=== PATIENT | female | born 1960 | race Caucasian/White ===

== ENCOUNTER 2019-05-29 11:21 | Inpatient (IN) ==
[2019-05-29] MEDS: NEURONTIN PO SCH ×2 (14:13→18:59)
[2019-05-29] MEDS: DILAUDID IV PRN ×2 (14:13→18:59)
[2019-05-29] MEDS: PROTONIX IV SCH (14:14)
[2019-05-29 14:15] LABS: URINE SOURCE CATH
[2019-05-29 14:28] LABS: BILIRUBIN URINE NEGATIVE (NEGATIVE); BLOOD URINE NEGATIVE (NEGATIVE); COLOR YELLOW; GLUCOSE URINE NEGATIVE (NEGATIVE); KETONE URINE NEGATIVE (NEGATIVE); LEUKOCYTES URINE NEGATIVE (NEGATIVE); NITRITE URINE NEGATIVE (NEGATIVE); PH URINE 6.5; PROTEIN URINE NEGATIVE (NEGATIVE); SP GRAVITY URINE 1.009; TURBIDITY URINE CLEAR (CLEAR); UROBILINOGEN URINE NORMAL (NORMAL)
[2019-05-29 14:30] LABS: UR EPITHELIAL CELLS <10 /HPF (<10); URINE BACTERIA NEGATIVE /HPF; URINE RBC <10 /HPF (<10); URINE WBC <10 /HPF (<10)
[2019-05-29 15:24] LABS: BASO# 0.02 X1000 (0.0-0.2); BASO% 0.2 % (0.0-0.8); EOS# 0.67 X1000 (0.0-0.7); EOS% 6.7 % (0.0-10.0); HEMATOCRIT 45.7 % (37.0-47.0); HEMOGLOBIN 15.4 g/dL (12.0-16.0); LYMPH# 2.76 X1000 (1.2-3.4); LYMPH% 27.4 % (20.5-51.1); MCH 28.1 PG (27-31); MCHC 33.7 g/dL (33-37); MCV 83.2 FL (81-99); MONO# 0.69 X1000 (0.11-0.59); MONO% 6.9 % (1.7-9.3); MPV 10.4 FL (7.4-10.4); NEUT# 5.93 X1000 (1.4-6.5); NEUT% 58.8 % (42.2-75.2); PLT 358 X1000 (130-400); RBC 5.49 XMIL (4.2-5.4); RDW 14.3 % (11.5-14.5); WBC 10.07 X1000 (4.8-10.8)
[2019-05-29] MEDS: DUONEB (A & A) INH SCH ×3 (15:28→20:00)
[2019-05-29 15:41] LABS: ESTIMATED GFR > 60
[2019-05-29] MEDS: NICODERM PATCH TD SCH (15:42)
[2019-05-29] MEDS: LOVENOX SUBQ SCH (15:42)
[2019-05-29 15:45] LABS: AGAP 13; ALB/GLOB RATIO 1.7; ALBUMIN 4.2 g/dL (3.5-5.0); ALKALINE PHOSPHATASE 116 U/L (32-104); BUN 9 mg/dL (8-22); CALCIUM 9.4 mg/dL (8.8-10.2); CHLORIDE 88 mmol/L (98-107); COSMO 250; CREATININE 0.9 mg/dL (0.5-0.9); GLUCOSE 103 mg/dL (70-104); GOT 20 U/L (10-30); GPT 21 U/L (10-36); POTASSIUM 4.2 mmol/L (3.5-5.1); SODIUM 125 mmol/L (136-145); TCO2 24 mmol/L (25-35); TOTAL BILIRUBIN 0.35 mg/dL (0.20-1.00); TOTAL PROTEIN 6.7 g/dL (6.3-8.3)
--- NOTE | 2019-05-29 15:48 | Diag Imaging Result Doc PS360 ---
CT ABDOMEN/PELVIS W/O CONTRAST - 05/29/2019 INDICATION: abd pain COMPARISON: 07/19/2018 FINDINGS: The lung bases are clear and the heart size is normal. Stable cholecystectomy clips. No radiodense renal stones. No hydronephrosis or hydroureter. There is a Schmitz catheter in the urinary bladder. Urinary bladder is otherwise unremarkable. Uterus and rectum are normal. No bowel obstruction or inflammation. Normal appendix. No constipation. No free air or free fluid. There are advanced degenerative changes of the spine, worse at L2-L3, stable from prior. No acute or suspicious bony lesion. IMPRESSION: No acute disease or change from prior. This exam was performed using automated exposure control, adjustment of mA or kV according to patient size, and/or use of iterative reconstruction technique Electronically signed by Jacques Gudino 05/29/2019 3:46 PM
[2019-05-29] MEDS: SODIUM CHLORIDE 0.9% INJ SCH (17:42)
[2019-05-29] MEDS: ZOCOR PO SCH (20:29)
[2019-05-29] MEDS: LOPRESSOR PO SCH (20:29)
[2019-05-29] MEDS: ZANAFLEX PO SCH (20:30)
[2019-05-29] MEDS: ATIVAN PO SCH (22:10)
[2019-05-30] MEDS: DILAUDID IV PRN ×6 (00:29→23:17)
[2019-05-30] MEDS: NEURONTIN PO SCH ×4 (04:01→22:20)
[2019-05-30] MEDS: ZOFRAN IV PRN ×4 (05:40→23:18)
[2019-05-30] MEDS: DUONEB (A & A) INH SCH ×3 (08:19→19:57)
[2019-05-30] MEDS: COZAAR PO SCH (09:02)
[2019-05-30] MEDS: LOPRESSOR PO SCH ×2 (09:02→22:19)
[2019-05-30] MEDS: ZANAFLEX PO SCH ×2 (09:03→22:19)
[2019-05-30] MEDS: CYMBALTA PO SCH (09:03)
[2019-05-30] MEDS: NICODERM PATCH TD SCH (09:03)
[2019-05-30] MEDS: LASIX PO SCH (09:03)
[2019-05-30] MEDS: ABILIFY PO SCH (09:03)
[2019-05-30] MEDS: KLOR-CON PO SCH (09:03)
[2019-05-30] MEDS ORDERED: LABETALOL IV PRN (11:50)
--- NOTE | 2019-05-30 12:13 | PROGRESS NOTE ---
DATE: 05/30/2019 SUBJECTIVE: Ms Lindsay was admitted with severe abdominal pain, some intermittent mental confusion. Her pain is very severe. She was treated as an outpatient without much response. She was treated with Flagyl as well as oral antibiotics. She is allergic to Cipro. We are going to do the CT scan, repeat the urinalysis and do the blood work. She has bad hypertension, has been on Lasix therapy as well as Lopressor for a long time. OBJECTIVE: Her sodium is 125, and BUN and creatinine are normal. CBC is unremarkable. PLAN: We are going to check her stool for occult blood. -2 cc: Dante Coppola MD
[2019-05-30] MEDS: POTASSIUM CHLORIDE 10 MEQ in NS 1,000 ML IV SCH (12:31)
--- NOTE | 2019-05-30 13:03 | HISTORY AND PHYSICAL ---
HISTORY OF PRESENT ILLNESS: Ms. Lindsay, who is a 58-year-old white female, comes to the office. This is the 2nd time that she has come within 5 days. She had the same complaint of severe left lower quadrant pain. Sometimes she gets confused. She does not have any pain medications except that she was taking some NSAIDs. She has a history of recurrent diverticulitis in the past. Ms. Lindsay, who is grossly obese, has a past surgical history of 2 back surgeries and 1 neck surgery. She had a hysterectomy and had to revise that surgery. She has a bad scar in the lower abdomen and she complains of hurting there. This time, she was treated with whole cephalosporins as well as Flagyl without much help. She has persistent nausea and has been vomiting off and on along with this. She was in severe agony and was admitted. Other details of personal, past, and family history are noncontributory. She is a heavy smoker, smokes about 2 packs of cigarettes per day. Does not drink. She has bipolar disease and has been having a lot of a lot of anxiety and depression over the past few years on account of multiple family problems and her own physical problems. REVIEW OF SYSTEMS: Other than abdominal pain, vomiting, nausea, she denies having any chest pain, shortness of breath. She has intermittent confusion. Other details are not contributory. PHYSICAL EXAMINATION: GENERAL: Patient is alert, however, certainly talking about pain. VITAL SIGNS: Temperature normal, pulse 80 per minute, respiratory rate 20 per minute, blood pressure 141/105. HEENT: Head normocephalic. Pupils PERRLA. Fundus examination normal. NECK: Supple. JVP normal. ENT EXAMINATION: Unremarkable. There is no evidence of lymphadenopathy, thyroid enlargement, pedal edema, calf tenderness, anemia, cyanosis or clubbing. Pedal pulses well felt. BREAST EXAM: Not done. CHEST: Normal inspection. LUNGS: Clear on auscultation. PMI in the normal position. HEART: Heart sounds normal. No murmur, gallop or rub noted. ABDOMEN: Nondistended. Hernial orifices normal. No guarding, rigidity, free fluid, masses, or organomegaly. Bowel sounds normal. There is severe tenderness in the left lower quadrant of the abdomen. RECTAL: Deferred at the present time. The patient is somewhat incontinent.of urine.. CLINICAL PHARMACOLOGIST: Higher functions, severe anxiousness and depression. Cranial nerves normal. Motor and sensory system examination unremarkable. She has constant severe pain in the back. Deep tendon reflexes sluggish. Plantars downgoing. Skull and spine examination normal for age. No cerebellar signs or signs of meningeal irritation. Local motor exam unremarkable. SKIN: Unremarkable. CLINICAL IMPRESSION: 1. Severe abdominal pain, left lower quadrant. 2. The patient has intermittent confusion as well as history of multiple back surgeries and in constant back pain. PLAN: Plan to start IV Protonix. The patient also needs an urgent CT scan of the abdomen and pelvis, and depending on the results, we will start antibiotics. She has received enough oral antibiotics recently. cc: Dante Coppola MD MTDD
[2019-05-30] MEDS: LOVENOX SUBQ SCH (14:47)
[2019-05-30] MEDS: SODIUM CHLORIDE 0.9% INJ SCH (14:47)
[2019-05-30] MEDS: PROTONIX IV SCH (14:47)
[2019-05-30] MEDS: ATIVAN PO SCH (22:19)
[2019-05-30] MEDS: ZOCOR PO SCH (22:20)
[2019-05-31] MEDS: NEURONTIN PO SCH ×4 (00:51→20:10)
[2019-05-31] MEDS: ZOFRAN IV PRN ×4 (04:11→18:26)
[2019-05-31] MEDS: DILAUDID IV PRN ×4 (04:11→18:25)
[2019-05-31] MEDS: POTASSIUM CHLORIDE 10 MEQ in NS 1,000 ML IV SCH (05:58)
[2019-05-31 08:03] LABS: AGAP 12; BUN 11 mg/dL (8-22); CALCIUM 9.2 mg/dL (8.8-10.2); CHLORIDE 88 mmol/L (98-107); COSMO 252; CREATININE 0.9 mg/dL (0.5-0.9); ESTIMATED GFR > 60; GLUCOSE 155 mg/dL (70-104); POTASSIUM 5.7 mmol/L (3.5-5.1); SODIUM 124 mmol/L (136-145); TCO2 24 mmol/L (25-35)
[2019-05-31] MEDS: LASIX PO SCH (08:59)
[2019-05-31] MEDS: COZAAR PO SCH (08:59)
[2019-05-31] MEDS: ABILIFY PO SCH (08:59)
[2019-05-31] MEDS: CYMBALTA PO SCH (08:59)
[2019-05-31] MEDS: ZANAFLEX PO SCH ×2 (08:59→20:10)
[2019-05-31] MEDS: KLOR-CON PO SCH (08:59)
[2019-05-31] MEDS: LOPRESSOR PO SCH ×2 (09:00→20:10)
[2019-05-31] MEDS: NICODERM PATCH TD SCH (09:01)
[2019-05-31] MEDS: DUONEB (A & A) INH SCH ×3 (09:04→20:30)
--- NOTE | 2019-05-31 13:29 | PROGRESS NOTE ---
DATE: 05/31/2019 SUBJECTIVE: The patient says she still hurts in the left lower quadrant, then she falls off to sleep. She did this 2 or 3 times while I was in the room, and then asked for more pain medicine. Apparently came in with what was described as severe left lower quadrant abdominal pain. CT scan of the abdomen was clear, did not show diverticulitis, did not show masses, did not show colitis. She does tell me it has been over 10 years since her last colonoscopy. She also had hypokalemia. She was given IV and p.o. potassium, but her potassium today is 5.7, so we will stop the supplemental potassium for now and we will monitor. OBJECTIVE: Vital Signs: Blood pressure is 155/102, respirations 16, pulse 71, temperature 97.9 degrees Fahrenheit. Oxygen saturation is 99% on room air. HEENT: She is normocephalic. EOMS intact. PERRLA. Throat clear. Lungs: Clear to auscultation and percussion without rhonchi, rales, or wheezes. Heart: Regular rate and rhythm without murmurs, gallops, friction rubs. Abdomen: Soft. Active bowel sounds. No organomegaly or tenderness. The patient says she hurts in the left lower quadrant, but I cannot really elicit any on exam. Nurses tell me that she has been asking for pain medicine almost constantly. ASSESSMENT: 1. Left lower quadrant abdominal pain. 2. Obesity. 3. Hypokalemia. 4. Now hyperkalemia. PLAN: Stop potassium supplementation and monitor. We will get GI to come see her. She may need a colonoscopy. cc: MD Dante Valentine Jr, MD
[2019-05-31] MEDS: PROTONIX IV SCH (14:15)
[2019-05-31] MEDS: LOVENOX SUBQ SCH (14:16)
[2019-05-31] MEDS: SODIUM CHLORIDE 0.9% INJ SCH (14:16)
[2019-05-31] MEDS: ZOCOR PO SCH (20:10)
[2019-05-31] MEDS: ATIVAN PO SCH (20:10)
[2019-05-31] MEDS: NS 1,000 ML IV SCH (20:10)
[2019-06-01] MEDS: DILAUDID IV PRN ×5 (00:02→21:08)
[2019-06-01] MEDS: NEURONTIN PO SCH ×4 (01:13→21:08)
[2019-06-01 05:30] LABS: BASO# 0.02 X1000 (0.0-0.2); BASO% 0.3 % (0.0-0.8); EOS# 0.68 X1000 (0.0-0.7); EOS% 8.9 % (0.0-10.0); HEMATOCRIT 40.1 % (37.0-47.0); HEMOGLOBIN 12.7 g/dL (12.0-16.0); IMM GRAN# 0.02 X1000 (0.0-0.04); IMM GRAN% 0.3 % (0.0-0.5); LYMPH# 2.43 X1000 (1.2-3.4); LYMPH% 31.7 % (20.5-51.1); MCH 27.4 PG (27-31); MCHC 31.7 g/dL (33-37); MCV 86.6 FL (81-99); MONO# 0.45 X1000 (0.11-0.59); MONO% 5.9 % (1.7-9.3); MPV 10.2 FL (7.4-10.4); NEUT# 4.07 X1000 (1.4-6.5); NEUT% 52.9 % (42.2-75.2); PLT 292 X1000 (130-400); RBC 4.63 XMIL (4.2-5.4); RDW 13.9 % (11.5-14.5); WBC 7.67 X1000 (4.8-10.8)
[2019-06-01 06:01] LABS: AGAP 8; BUN 8 mg/dL (8-22); CHLORIDE 93 mmol/L (98-107); COSMO 259; CREATININE 0.9 mg/dL (0.5-0.9); ESTIMATED GFR > 60; GLUCOSE 132 mg/dL (70-104); POTASSIUM 4.7 mmol/L (3.5-5.1); SODIUM 129 mmol/L (136-145); TCO2 28 mmol/L (25-35)
[2019-06-01] MEDS: DUONEB (A & A) INH SCH ×3 (07:32→21:36)
[2019-06-01] MEDS: NS 1,000 ML IV SCH ×2 (08:00→21:13)
[2019-06-01] MEDS: NICODERM PATCH TD SCH (08:01)
[2019-06-01] MEDS: ABILIFY PO SCH (08:01)
[2019-06-01] MEDS: LASIX PO SCH (08:02)
[2019-06-01] MEDS: COZAAR PO SCH (08:02)
[2019-06-01] MEDS: LOPRESSOR PO SCH ×2 (08:02→21:08)
[2019-06-01] MEDS: CYMBALTA PO SCH (08:02)
[2019-06-01] MEDS: ZOFRAN IV PRN ×2 (12:35→17:01)
[2019-06-01] MEDS: PROTONIX IV SCH (12:38)
[2019-06-01] MEDS: SODIUM CHLORIDE 0.9% INJ SCH (12:38)
[2019-06-01] MEDS: ZANAFLEX PO SCH ×2 (12:45→21:08)
--- NOTE | 2019-06-01 13:48 | PROGRESS NOTE ---
DATE: 06/01/2019 SUBJECTIVE: The patient says she is still hurting some in the left lower quadrant. GI has not seen her yet. OBJECTIVE: Blood pressure is 139/69, respirations 14, pulse 87, temperature 98.8 degrees Fahrenheit.HEENT: She is normocephalic. EOMS intact. PERRLA. Throat clear. Lungs: Clear to auscultation and percussion without rhonchi, rales or wheezes. Heart: Regular rate and rhythm without murmurs, gallops, friction rubs. Abdomen: Soft. Active bowel sounds with left lower quadrant tenderness. LABS: CT scan of the abdomen was essentially normal. Sodium 129 which is up from 124, potassium 4.7 which is down from 5.7, she had hypokalemia was treated became slightly hyperkalemia and I stopped her potassium. BUN 8, creatinine 0.9. White count 7670, hemoglobin 12.7, hematocrit 40.1. ASSESSMENT: 1. Left lower quadrant abdominal pain. 2. Obesity. 3. Hypokalemia. 4. Hyperkalemia now normal. PLAN: GI to see. cc: MD Dante Valentine Jr, MD
[2019-06-01] MEDS: LOVENOX SUBQ SCH (14:50)
[2019-06-01] MEDS: ZOCOR PO SCH (21:08)
[2019-06-01] MEDS: ATIVAN PO SCH (21:08)
[2019-06-02] MEDS: DILAUDID IV PRN ×2 (01:03→05:01)
[2019-06-02] MEDS: NEURONTIN PO SCH ×2 (01:03→08:50)
[2019-06-02 06:45] LABS: BASO# 0.02 X1000 (0.0-0.2); BASO% 0.3 % (0.0-0.8); EOS# 0.73 X1000 (0.0-0.7); EOS% 10.1 % (0.0-10.0); HEMATOCRIT 38.3 % (37.0-47.0); HEMOGLOBIN 12.1 g/dL (12.0-16.0); IMM GRAN# 0.02 X1000 (0.0-0.04); IMM GRAN% 0.3 % (0.0-0.5); LYMPH# 2.14 X1000 (1.2-3.4); LYMPH% 29.6 % (20.5-51.1); MCH 27.4 PG (27-31); MCHC 31.6 g/dL (33-37); MCV 86.8 FL (81-99); MONO# 0.62 X1000 (0.11-0.59); MONO% 8.6 % (1.7-9.3); NEUT% 51.1 % (42.2-75.2); PLT 280 X1000 (130-400); RBC 4.41 XMIL (4.2-5.4); RDW 13.8 % (11.5-14.5); WBC 7.23 X1000 (4.8-10.8)
[2019-06-02] MEDS: NS 1,000 ML IV SCH (06:51)
[2019-06-02 06:56] LABS: AGAP 10; BUN 8 mg/dL (8-22); CALCIUM 8.8 mg/dL (8.8-10.2); CHLORIDE 91 mmol/L (98-107); COSMO 260; CREATININE 0.9 mg/dL (0.5-0.9); ESTIMATED GFR > 60; GLUCOSE 122 mg/dL (70-104); POTASSIUM 4.2 mmol/L (3.5-5.1); SODIUM 130 mmol/L (136-145); TCO2 29 mmol/L (25-35)
[2019-06-02 08:42] VITALS: BP 151/89
[2019-06-02] MEDS: ZANAFLEX PO SCH (08:50)
[2019-06-02] MEDS: CYMBALTA PO SCH (08:50)
[2019-06-02] MEDS: COZAAR PO SCH (08:50)
[2019-06-02] MEDS: LASIX PO SCH (08:51)
[2019-06-02] MEDS: ABILIFY PO SCH (08:51)
[2019-06-02] MEDS: NICODERM PATCH TD SCH (08:51)
[2019-06-02] MEDS: LOPRESSOR PO SCH (08:51)
[2019-06-02] MEDS: DUONEB (A & A) INH SCH (08:54)
[2019-06-02] MEDS ORDERED: NORCO-10 PO ONE (08:59)
[2019-06-02] MEDS ORDERED: MIRALAX PO SCH (09:15)
--- NOTE | 2019-06-02 09:55 | PROGRESS NOTE ---
DATE: 06/02/2019 LOCATION: Room 108A. SUBJECTIVE: Ms. Lindsay is feeling about the same. She still has pain, which could be coming from the colon or the spine. Her white count is, however, normal. Hemoglobin is 12.1. Her sodium is up to 130. Stool is positive for occult blood. I told her she needs colonoscopy, which she knows, but she wants to get it as an outpatient, wants to go home today. We will try to discharge her today. -3 cc: Dante Coppola MD
--- NOTE | 2019-06-02 16:49 | GASTROENTEROLOGY CONSULTATION ---
DATE: 06/02/2019 REASON FOR CONSULTATION: Abdominal pain. HISTORY OF PRESENT ILLNESS: Ms. Lindsay is a 58-year-old female who is morbidly obese. She has been in the hospital since 05/29. She came with complaints of lower abdominal pain mentioning that her pain was 10/10. Sometimes, it was a cramping and shooting pain. The patient also mentioned that she did have some loose bowel movements. The patient has a history of taking NSAIDs and she is also taking oxycodone/acetaminophen 10/325 mg on a daily basis. The patient had taken all of her pain medicines and she was out of it. She does have a history of hypertension, GERD, congestive heart failure, back pain, and kidney cancer. The patient has denied any alcohol, but she does smoke 2 packs of cigarettes per day. The patient does have anxiety and depression. She also has bipolar disorder. Currently, patient has denied any nausea or vomiting, but she does mention that she has some generalized abdominal pain, but mainly her pain is in her back. The patient mentioned that she was feeling better and she did want to go home. As per her PCP, she might be getting discharged today. PAST MEDICAL HISTORY: Hypertension, GERD, congestive heart failure, back pain, kidney cancer, anxiety, depression, tobacco abuse, and bipolar disorder. PAST SURGICAL HISTORY: Back surgery, neck surgery, partial nephrostomy, cyst removed from the right leg, and breast reduction. ALLERGIES: To levofloxacin, phenobarbital, ciprofloxacin, ciprofloxacin HCL, and moxifloxacin. SOCIAL HISTORY: The patient is a smoker. She smokes 2 packs of cigarettes per day. Denies having any alcohol or illicit drug use. FAMILY HISTORY: No significant GI malignancies. MEDICATIONS: 1. Nexium 40 mg p.o. daily. 2. Aripiprazole 5 mg p.o. at bedtime. 3. Gabapentin 300 mg 4 times a day. 4. Lorazepam 1 mg p.o. at bedtime. 5. Losartan 100 mg p.o. daily. 6. Diclofenac 50 mg p.o. twice a day. 7. Cymbalta 1 tablet 60 mg p.o. daily. 8. Furosemide 40 mg p.o. daily. 9. Metoprolol 50 mg p.o. twice a day. 10. Percocet 10 mg 1 tablet 5 times a day as needed. 11. Simvastatin 20 mg p.o. daily. 12. Zanaflex 1 tablet p.o. 3 times a day. 13. Zofran 4 mg p.o. 3 times a day as needed. 14. Lamisil 1% cream application twice a day. 15. Potassium chloride 10 mEq p.o. daily. REVIEW OF SYSTEMS: As per HPI. Otherwise, 12 point review of system is negative. PHYSICAL EXAMINATION: Vital Signs: Temperature 98.1 degrees, pulse 91, respirations 16, blood pressure 151/89, and oxygen saturation 96% on room air. The patient's weight is 271 pounds. BMI is 49.6 kg/m2. General: She is alert and oriented x3 answering questions appropriately and in no acute distress. HEENT: Pale conjunctivae. No icterus. PERRL. Neck: Supple. Lungs: Clear to auscultation. Cardiovascular: Patient is tachycardic. Abdomen: Obese, soft, and tender in the lower quadrant. Hypoactive bowel sounds heard in all 4 quadrants. Extremities: No clubbing, no cyanosis, no edema. Pedal pulses 2+ present bilaterally. Neurologic: She is alert and oriented x3. Nonfocal. Cranial nerves 2-12 grossly intact. LABORATORY DATA: WBCs are 7.23, RBC 4.41, hemoglobin 12.1, hematocrit is 38.3, and platelet count is 280,000. Sodium 130, potassium 4.2, chloride 91, carbon dioxide 29, anion gap 10, BUN 8, creatinine 0.9, glucose 122, and calcium 8.8. Urinalysis was negative. IMAGING: Abdomen and pelvis CT has shown no acute disease or change from the prior. IMPRESSION AND PLAN: LLQ Abdominal pain Constipation -? Opiod induced Obesity Nausea and vomiting Smoker Positive Hemoccult Hyponatremia PLAN: Ms Lindsay is a 58-year-old female with a history of anxiety, depression, and bipolar disorder. GI has been consulted for her left lower quadrant abdominal pain. Will start the patient on Miralax 17g BID. The patient was recommended to reduce narcotics to lowest possible. Encouraged to start High fiber diet. The patient currently has a discharge order. She is a patient of Dr. Angeles and she can follow him as an outpatient in 2 weeks. This plan was discussed with Dr. Garza. Thank you for your consult. Please call us for any further questions or concerns. Dictated by GODWIN Rivera for Glenn Garza MD cc: MD Dante Colbert MD I have seen and examined the patient myself and I agree with the above plan of care. Please call us with any further questions or concerns. MTDD
--- NOTE | 2019-06-05 03:11 | DISCHARGE SUMMARY ---
ADMISSION DATE: 05/29/2019 DISCHARGE DATE: 06/02/2019 HISTORY OF PRESENT ILLNESS: Ms. Lindsay who is a 58-year-old white female was admitted with severe right lower quadrant abdominal pain. Lab data in the hospital CT scan of the abdomen did not reveal any acute disease. The patient had a normal appendix. No free fluid or free air, and she has a history of diverticulosis in the past; however, this was done without contrast. LABORATORY DATA: Revealed initial white count was at 10.07, hemoglobin was 15.4, hematocrit 45.7. Electrolytes revealed severe hyponatremia, sodium went back down from 125 to 124. She did have intermittent confusion. Her potassium was normal. BUN and creatinine were normal. Alkaline phosphatase was 116. The rest of the liver enzymes were normal. Urinalysis was normal. COURSE IN THE HOSPITAL: She was given IV saline solution, which made the sodium come back up some to 130, which was a safer level. She had a lot of abdominal pain. CT scan was unremarkable. She was treated as an outpatient for diverticulitis. She has severe degenerative disk disease in the spine with a history of back surgery. She was seen by Dr. Garza who suggested a high-fiber diet and he wanted to follow her as an outpatient probably for a colonoscopy. She was treated with pain medications as well as well as IV antibiotics initially, IV Saline was given as she had severe hyponatremia. FINAL DIAGNOSES: Left lower quadrant abdominal pain, possible diverticulitis, severe degenerative disk disease in the lumbar spine, hyponatremia possibly drug-induced. She will be seen in the office in about 7 days. cc: Dante Coppola MD MTDD
== END 2019-06-02 11:05 | disposition home or self-care (01) | DRG 392 ==
LOC: DIRADM 11:21 → 1N 13:04
PROVIDERS: ADMIT Internal Medicine; ATTEND Internal Medicine